=== PATIENT | female | born 1945 | race Caucasian/White ===

== ENCOUNTER → 2016-12-23 | Outpatient (CLI) | payer MEDICARE, OTHER | LOC: MW.CHORTHO 08:00 | CPT/HCPCS: 20610-50; 99203; J1040 ==

== ENCOUNTER 2018-11-30 11:17 | Emergency (ER) | payer MEDICARE, OTHER ==
--- NOTE | 2018-11-30 13:01 | EDM.PDOC ---
ED HPI GENERAL MEDICAL PROBLEM - General Chief Complaint: Headache Stated Complaint: HEADACHE Time Seen by Provider: 11/30/18 11:52 Source of Information: Reports: Patient History Limitations: Reports: No Limitations - History of Present Illness INITIAL COMMENTS - FREE TEXT/NARRATIVE: Presents reporting she hit her head on the edge of a door on Thursday night. She continues to have a little headache so her primary told her to come to the ER. She had a nosebleed on the left side yesterday had some sinus pressure. That resolved on its own. She states that she was sitting on the toilet. She got up from the toilet and did not realize that the door had swung open and she bashed her face and left for head into the door. She did not lose consciousness. She denies visual symptoms, nausea, vomiting. HEad Pain Score (Numeric/FACES): 7 - Related Data Allergies Allergy/AdvReac Type Severity Reaction Status Date / Time No Known Allergies Allergy Verified 11/30/18 11:57 Home Meds: Home Meds Albuterol [IJD: Ventolin HFA] 2 inh IH QID PRN 08/05/16 [History] Aspirin 81 mg PO DAILY 08/05/16 [History] Fluconazole [Diflucan] 150 mg PO Q3D PRN 08/05/16 [History] Fluticasone Propionate [Flonase] 1 spray USMAN DAILY 08/05/16 [History] Fluticasone Propionate [Flovent HFA 44 MCG] 2 inh IH BID 08/05/16 [History] Furosemide 40 mg PO Q2D 08/05/16 [History] Levothyroxine Sodium [Levoxyl] 175 mcg PO ACBREAKFAST 08/05/16 [History] Loperamide [Imodium] 2 mg PO QID PRN 08/05/16 [History] Losartan [Cozaar] 25 mg PO DAILY 08/05/16 [History] Methylcellulose (with Sugar) [Citrucel] 1 scoop PO ASDIRECTED PRN 08/05/16 [ History] Nitroglycerin [Nitrostat] 0.4 mg SL ASDIRECTED PRN 08/05/16 [History] Sertraline [Zoloft] 150 mg PO DAILY 08/05/16 [History] metFORMIN [Glucophage] 1,000 mg PO BIDMEALS 08/05/16 [History] rOPINIRole HCl [Ropinirole HCl] 4 mg PO BID@0800,1200 08/05/16 [History] rOPINIRole [Requip] 8 mg PO BEDTIME 08/05/16 [History] Past Medical History Cardiovascular History: Reports: Heart Murmur, High Cholesterol, Hypertension, [place] Respiratory History: Reports: Asthma Gastrointestinal History: Reports: Diverticulosis Genitourinary History: Reports: None 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: Musculoskeletal History: Reports: Arthritis, Other (See Below) Other Musculoskeletal History: Bursitis-L hip Neurological History: Reports: Vertigo Psychiatric History: Reports: Anxiety, Depression Endocrine/Metabolic History: Reports: Diabetes, Type II, Hypothyroidism Hematologic History: Reports: None Immunologic History: Reports: None Oncologic (Cancer) History: Reports: None Dermatologic History: Reports: None - Infectious Disease History Infectious Disease History: Reports: Chicken Pox, Shingles - Past Surgical History Head Surgeries/Procedures: Reports: None HEENT Surgical History: Reports: Tonsillectomy GI Surgical History: Reports: Appendectomy, Cholecystectomy, Hernia Repair/Other , Other (See Below) Female Surgical History: Reports: Hysterectomy Neurological Surgical History: Reports: Lumbar Spine Social & Family History - Family History Family Medical History: Noncontributory - Tobacco Use Smoking Status *Q: Never Smoker - Caffeine Use Caffeine Use: Reports: Soda - Recreational Drug Use Recreational Drug Use: No ED ROS GENERAL - Review of Systems Review Of Systems: ROS reveals no pertinent complaints other than HPI. ED EXAM, HEAD INJURY - Physical Exam Exam: See Below Exam Limited By: No Limitations General Appearance: Alert, No Apparent Distress Head: Scalp Ecchymosis (Left for head), Scalp Hematoma (Mild left upper forehead ), Facial Ecchymosis (Mild left for head) Ears: Normal External Exam, Normal TMs Nose: Normal Inspection Throat/Mouth: Normal Inspection, Normal Oropharynx Neck: Non-Tender, Full Range of Motion Respiratory: No Respiratory Distress, Lungs Clear, Normal Breath Sounds Cardiovascular: Normal Peripheral Pulses, Systolic Murmur (Long-standing) GI/Abdominal Exam: Soft Back Exam: Normal Inspection, Full Range of Motion Extremities: Normal 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 As Tested, No Motor/Sensory Deficits, Alert, Normal Mood/Affect, Oriented x 3 Skin: Normal Color, Warm/Dry - [place] Coma Score Best Eye Response (Kristine): (4) Open Spontaneously Best Verbal Response (Kristine): (5) Oriented Best Motor Response ([place]): (6) Obeys Commands Course - Vital Signs Last Recorded V/S: Last Vital Signs Temp 36.0 C 11/30/18 11:58 Pulse 72 11/30/18 11:58 Resp 15 11/30/18 11:58 BP 125/53 L 11/30/18 11:58 Pulse Ox 96 11/30/18 11:58 - Orders/Labs/Meds Orders: Active Orders 24 hr Category Date Time Status Head wo Cont [CT] Stat Exams 11/30/18 12:06 Ordered Departure - Departure Time of Disposition: 14:01 Disposition: Home, Self-Care 01 Condition: Good Clinical Impression: Head injury - Discharge Information Referrals: PCP,Unknown [Primary Care Provider] - Additional Instructions: 1. Return promptly for vomiting, visual symptoms, worsening headache or somnolence - My Orders Last 24 Hours: My Active Orders 11/30/18 12:06 Head wo Cont [CT] Stat - Assessment/Plan Last 24 Hours: My Active Orders 11/30/18 12:06 Head wo Cont [CT] Stat
--- NOTE | 2018-11-30 13:36 | CT ---
EXAMINATION: Non contrast CT head. Coronal and sagittal reformats. HISTORY: Pain FINDINGS: No evidence of intra or extra axial hemorrhage, mass, midline shift, hydrocephalus or edema. Mild symmetric prominence of the lateral ventricles. Mild subcortical white matter hypodensities noted most prominent within the left frontal region. No hypoattenuation changes in the major vascular territories to suggest acute infarct. No abnormal intracranial calcifications are detected. No evidence of substantial vascular calcifications. Paranasal sinuses and mastoid air cells are well aerated without substantial findings. Pituitary fossa appears unremarkable. Calvarium is intact. No evidence of skull fracture. IMPRESSION: 1. Likely mild small vessel ischemic changes. 2. Mild symmetric ventricular prominence, within normal limits, however can be collections representative of normal pressure hydrocephalus.
[2018-11-30 14:18] VITALS: BP 122/41
== END 2018-11-30 14:15 | disposition home or self-care (01) ==
LOC: MW.ED 11:17
DX: S09.90XA Unspecified injury of head, initial encounter (principal); S00.03XA Contusion of scalp, initial encounter; S00.83XA Contusion of other part of head, initial encounter; I10 Essential (primary) hypertension; E11.9 Type 2 diabetes mellitus without complications; E03.9 Hypothyroidism, unspecified; I25.2 Old myocardial infarction; Z79.84 Long term (current) use of oral hypoglycemic drugs; Z79.899 Other long term (current) drug therapy; Z79.82 Long term (current) use of aspirin; W22.8XXA Striking against or struck by other objects, initial encounter
CPT/HCPCS: 70450; 70450-26; 99284-25

== ENCOUNTER 2020-07-23 17:34 | Emergency (ER) | payer MEDICARE, OTHER ==
--- NOTE | 2020-07-23 18:30 | EDM.PDOC ---
ED HPI GENERAL MEDICAL PROBLEM - General Chief Complaint: Respiratory Problem Stated Complaint: COVID, POSSIBLE PNUEMONIA Time Seen by Provider: 07/23/20 17:43 Source of Information: Reports: Patient History Limitations: Reports: No Limitations - History of Present Illness INITIAL COMMENTS - FREE TEXT/NARRATIVE: HISTORY AND PHYSICAL: History of present illness: Patient is a 71-year-old female who presents the ED today with concern of possible bacterial pneumonia as she was diagnosed with COVID-19 on July 16, 1 week ago. Patient states that she went through a drive-through screening at the [facility] and was told that she had COVID-19 1 week ago. Patient states since then she has had generalized body aches, cough, fatigue, and fevers. Patient states that she has a history of prior bacterial pneumonia so was concerned that the COVID-19 infection would lead to a bacterial pneumonia but states that her symptoms have not worsened and have remained constant since she was diagnosed. Denies any other symptoms or concerns. Patient denies chest pain, shortness of breath. Denies headache, neck stiff ness, change in vision, syncope, or near syncope. Denies nausea, vomiting, abdominal pain, diarrhea, constipation, or dysuria. Has not noted any blood in urine or stool. Patient has been eating and drinking appropriately. Review of systems: As per history of present illness and below otherwise all systems reviewed and negative. Past medical history: As per history of present illness and as reviewed below otherwise noncontributory. Surgical history: As per history of present illness and as reviewed below otherwise noncontributory. Social history: See social history for further information Family history: As per history of present illness and as reviewed below otherwise noncontributory. Physical exam: General: Patient is alert, oriented, and in no acute distress. Patient sitting comfortably on exam table. HEENT: Atraumatic, normocephalic, pupils equal and reactive bilaterally, negative for conjunctival pallor or scleral icterus, mucous membranes moist, TMs normal bilaterally, throat clear, neck supple, nontender, trachea midline. No drooling or trismus noted. No meningeal signs. No hot potato voice noted. Lungs: Patient speaking clearly without breathlessness, no wheezing or stridor, no accessory muscle use or respiratory distress. Auscultation deferred due to current COV-ID 19 outbreak. Heart: Auscultation deferred due to current COV-ID 19 outbreak. Abdomen: Soft, nondistended Pelvis: Stable nontender. Genitourinary: Deferred. Rectal: Deferred. Skin: Intact, warm, dry. No lesions or rashes noted. Extremities: Atraumatic, negative for cords or calf pain. Neurovascular unremarkable. Neuro: Awake, alert, oriented. Cranial nerves II through XII unremarkable. Cerebellum unremarkable. Motor and sensory unremarkable throughout. Exam nonfocal. Notes: O2 on RA 94% and patient is speaking clearly without breathlessness, no wheezing or stridor, breathing comfortably without any accessory muscle use or signs of respiratory distress. Discussed with patient monitoring oxygen at home with a pulse oximeter. Thorough signs and symptoms reviewed with patient that would prompt return to the ED were thoroughly discussed. Discussed importance for follow-up with primary care provider. Voices understanding and is agreeable to plan of care. Denies any further questions or concerns at this time. Diagnostics: CXR (patient declines all other labwork or diagnostics today) Therapeutics: None Prescription: None Impression: COVID-19 infection Plan: 1. Your vital signs and oxygen saturation are well enough that you are able to monitor your symptoms at home. Continue to monitor for trouble breathing, new confusion or inability to arouse, bluish lips or face or any of the other symptoms we discussed -if this occurs please return to the emergency room as we discussed. 2. Please self quarantine as discussed. You may alternate Tylenol and ibuprofen as needed for pain and fever management. 3. Follow up with your primary care provider for re-evaluation and re-testing after the 2 week quarantine and discuss when you should be seen. Definitive disposition and diagnosis as appropriate pending reevaluation and review of above. head Pain Score (Numeric/FACES): 8 - Related Data Allergies Allergy/AdvReac Type Severity Reaction Status Date / Time No Known Allergies Allergy Verified 07/23/20 17:49 Home Meds: Home Meds Albuterol [IJD: Ventolin HFA] 2 inh IH QID PRN 08/05/16 [History] Aspirin 81 mg PO DAILY PRN 08/05/16 [History] Fluticasone Propionate [Flonase] 1 spray USMAN DAILY 08/05/16 [History] Fluticasone Propionate [Flovent HFA 44 MCG] 2 inh IH BID PRN 08/05/16 [History] Furosemide 40 mg PO DAILY 08/05/16 [History] Levothyroxine Sodium [Levoxyl] 175 mcg PO ACBREAKFAST 08/05/16 [History] Loperamide [Imodium] 2 mg PO QID PRN 08/05/16 [History] Losartan [Cozaar] 25 mg PO DAILY 08/05/16 [History] Methylcellulose (with Sugar) [Citrucel] 1 scoop PO ASDIRECTED PRN 08/05/16 [History] Nitroglycerin [Nitrostat] 0.4 mg SL ASDIRECTED PRN 08/05/16 [History] Sertraline [Zoloft] 150 mg PO DAILY 08/05/16 [History] metFORMIN [Glucophage] 1,000 mg PO BIDMEALS 08/05/16 [History] rOPINIRole HCl [Ropinirole HCl] 4 mg PO BID@0800,1200 PRN 08/05/16 [History] rOPINIRole [Requip] 8 mg PO BEDTIME PRN 08/05/16 [History] Past Medical History Cardiovascular History: Reports: Heart Murmur, High Cholesterol, Hypertension, [place] Respiratory History: Reports: Asthma Gastrointestinal History: Reports: Diverticulosis Genitourinary History: Reports: None 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: Musculoskeletal History: Reports: Arthritis, Other (See Below) Other Musculoskeletal History: Bursitis-L hip Neurological History: Reports: Vertigo Psychiatric History: Reports: Anxiety, Depression Endocrine/Metabolic History: Reports: Diabetes, Type II, Hypothyroidism Hematologic History: Reports: None Immunologic History: Reports: None Oncologic (Cancer) History: Reports: None Dermatologic History: Reports: None - Infectious Disease History Infectious Disease History: Reports: Chicken Pox, Shingles - Past Surgical History Head Surgeries/Procedures: Reports: None HEENT Surgical History: Reports: Tonsillectomy GI Surgical History: Reports: Appendectomy, Cholecystectomy, Hernia Repair/Other, Other (See Below) Female Surgical History: Reports: Hysterectomy Neurological Surgical History: Reports: Lumbar Spine Social & Family History - Family History Family Medical History: Noncontributory - Tobacco Use Smoking Status *Q: Never Smoker - Caffeine Use Caffeine Use: Reports: Soda - Recreational Drug Use Recreational Drug Use: No ED ROS GENERAL - Review of Systems Review Of Systems: Comprehensive ROS is negative, except as noted in HPI. 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 This information is to outline your options for follow-up care. We provide all patients seen in our emergency department with a follow-up referral. The need for follow-up, as well as the timing and circumstances, are variable depending upon the specifics of your emergency department visit. If you don't have a primary care physician on staff, we will provide you with a referral. We always advise you to contact your personal physician following an emergency department visit to inform them of the circumstance of the visit and for follow-up with them and/or the need for any referrals to a consulting specialist. The emergency department will also refer you to a specialist when appropriate. This referral assures that you have the opportunity for follow-up care with a specialist. All of these measure are taken in an effort to provide you with optimal care, which includes your follow-up. Under all circumstances we always encourage you to contact your private physician who remains a resource for coordinating your care. When calling for follow-up care, please make the office aware that this follow-up is from your recent emergency room visit. If for any reason you are refused follow-up, please contact the [facility] at and asked to speak to the emergency department charge nurse. [facility] [address] [place] [address] [id number] [address] [id number] 1. Your vital signs and oxygen saturation are well enough that you are able to monitor your symptoms at home. Continue to monitor for trouble breathing, new confusion or inability to arouse, bluish lips or face or any of the other symptoms we discussed -if this occurs please return to the emergency room as we discussed. 2. Please self quarantine as discussed. You may alternate Tylenol and ibuprofen as needed for pain and fever management. 3. Follow up with your primary care provider for re-evaluation and re-testing after the 2 week quarantine and discuss when you should be seen. Sepsis Event Note (ED) - Evaluation Sepsis Screening Result: Possible Sepsis Risk - Focused Exam Vital Signs: Vital Signs Temp Pulse Resp BP Pulse Ox 07/23/20 18:17 77 24 H 119/45 L 93 L 07/23/20 17:45 98.3 F 87 24 H 125/48 L 92 L
--- NOTE | 2020-07-23 18:58 | CR ---
INDICATION: Pain. Shortness of breath. COMPARISON: None. FINDINGS/IMPRESSION: Upright portable AP chest radiograph. Suggestion of subtle patchy bilateral mid and lower lung infiltrates, age indeterminate. An infectious or inflammatory etiology is possible. No pleural effusions. Upper normal heart size. Spinal and shoulder degenerative changes. No acute osseous findings. Dictated by Hari Ramires MD @ 07/23/2020 6:57:10 PM Dictated by: Hari Ramires MD @ 07/23/2020 18:57:28 (Electronically Signed)
[2020-07-24 02:26] VITALS: BP 131/77; PULSE 83
== END 2020-07-23 19:16 | disposition home or self-care (01) ==
LOC: MW.ED 17:34
DX: U07.1 COVID-19 (principal); I10 Essential (primary) hypertension; I25.2 Old myocardial infarction; J45.909 Unspecified asthma, uncomplicated; M19.90 Unspecified osteoarthritis, unspecified site; F41.9 Anxiety disorder, unspecified; F32.9 Major depressive disorder, single episode, unspecified; E11.9 Type 2 diabetes mellitus without complications; E03.9 Hypothyroidism, unspecified; Z79.82 Long term (current) use of aspirin; Z79.899 Other long term (current) drug therapy; Z79.84 Long term (current) use of oral hypoglycemic drugs
CPT/HCPCS: 71045; 71045-26; 99282; 99283-25

== ENCOUNTER 2020-07-30 01:55 | Emergency (ER) | payer MEDICARE, OTHER ==
[2020-07-30] MEDS ORDERED: Ondansetron 4 MG/2 ML SDV IVPUSH ONE (02:15)
[2020-07-30] MEDS ORDERED: Sodium Chloride 0.9% 2.5 ML Syringe FLUSH PRN (02:15)
[2020-07-30] MEDS ORDERED: Sodium Chloride 0.9% 1,000 ML IV ONE (02:15)
[2020-07-30] MEDS ORDERED: Sodium Chloride 0.9% 10 ML Syringe FLUSH PRN (02:15)
[2020-07-30 03:11] LABS: BLOOD UREA NITROGEN,BUN 17 mg/dL (7.0-18.0); CARBON DIOXIDE,CO2 25.6 mmol/L (21.0-32.0); CHLORIDE,CL 98 mmol/L (98-107); GLUCOSE RANDOM 139 mg/dL (74-106); POTASSIUM,K 3.4 mmol/L (3.5-5.1); SODIUM,NA 130 mmol/L (136-145)
[2020-07-30] MEDS ORDERED: Iopamidol 755 Mg/ML 100 ML Bottle IVPUSH STA (03:59)
--- NOTE | 2020-07-30 04:15 | CT ---
INDICATION: Shortness of breath TECHNIQUE: Contrast enhanced axial CT imaging through the chest, optimized for assessment of the pulmonary arterial tree. 75 mL Isovue 370 contrast agent was administered intravenously. Sagittal and coronal reconstructions are provided. COMPARISON: None FINDINGS: There is adequate opacification of the pulmonary arterial tree without evidence of thromboembolism. The main pulmonary artery is nondilated. The heart is mildly enlarged. There is mild coronary artery calcification. There is no pericardial effusion. There is normal caliber of the thoracic aorta. Mildly enlarged lymph nodes are seen scattered throughout the mediastinum and pulmonary riky. There are patchy ground-glass infiltrates throughout both lungs. There is no pleural effusion or pneumothorax. The thoracic osseous structures are unremarkable. No significant abnormality is demonstrated in the visualized upper abdomen. IMPRESSION: 1. Patchy ground-glass infiltrates throughout both lungs, concerning for COVID-19 pneumonia. Correlate clinically. 2. Mild mediastinal lymphadenopathy, presumably reactive. 3. No evidence of pulmonary thromboembolism. 4. Mild cardiomegaly. Coronary artery disease. Please note that all CT scans at this facility use dose modulation, iterative reconstruction, and/or weight-based dosing when appropriate to reduce radiation dose to as low as reasonably achievable. Dictated by Darren Rizo MD @ Jul 30 2020 4:14AM Signed by Dr. Darren Rizo @ Jul 30 2020 4:14AM
--- NOTE | 2020-07-30 04:33 | EDM.PDOC ---
ED HPI GENERAL MEDICAL PROBLEM - General Chief Complaint: Respiratory Problem Stated Complaint: SOB Time Seen by Provider: 07/30/20 02:17 - History of Present Illness INITIAL COMMENTS - FREE TEXT/NARRATIVE: HISTORY AND PHYSICAL: History of present illness: This is a 75-year-old female with a history significant hypertension and type 2 diabetes who was recently diagnosed on July 16 with coronavirus who presents ER today secondary to increased shortness of breath this evening. Patient reports that she was released today from quarantine since has been 2 weeks. Patient denies any recent fevers for approximately 2 days but reports of having fevers prior to that. Patient denies any nausea or vomiting but has had 1-2 loose bowel movements today. Patient has any dysuria frequency urgency. Patient has an abdominal pain. Patient denies any lower extremity edema. Patient denies any hemoptysis. Patient reports occasional nonproductive cough. Patient denies any chest pain. Patient denies any history of PE or DVT in the past. Patient denies any history of liver, lung, kidney problems. Patient reports that she has had coronary disease and October 2011 requiring a stent. Patient reports that she has a history of diverticulitis and has had surgery for diverticulitis in the past. Patient has no known drug allergies. Patient denies any tobacco alcohol or drugs. Review of systems: As per history of present illness and below otherwise all systems reviewed and negative. Past medical history: As per history of present illness and as reviewed below otherwise noncontributory. Surgical history: As per history of present illness and as reviewed below otherwise noncontributory. Social history: No reported history of drug or alcohol abuse. Family history: As per history of present illness and as reviewed below otherwise noncontributory. Physical exam: Constitutional: Patient is oriented to person, place, and time. Appears well- developed and well-nourished. No distress. HEENT: Moist mucous membranes Head: Normocephalic and atraumatic Eyes: Right eye exhibits no discharge. Left eye exhibits no discharge. No scleral icterus Neck: Normal range of motion. No tracheal deviation present. Cardiovascular: Normal rate and regular rhythm. Pulmonary: Effort normal, no respiratory distress. No wheezing rales or rhonchi Abdominal: No distention Musculoskeletal: Normal range of motion Neurologic: Alert and oriented to person, place and time. Skin: [place], warm and dry. Psychiatric: Normal mood and affect. Behavior is normal. Judgment and thought content normal. Nursing note and vital signs have been reviewed Diagnostics: CTA of thorax reveals no evidence of PE. Patient does have groundglass appearance to her lungs consistent with likely coronavirus infection. Assessment and plan: This is a 75-year-old female with a recent diagnosis of coronavirus who presents the ER today secondary to increased shortness of breath. Patient pulse ox on room air is 93 to 95%. Patient CT scan is consistent with likely changes from coronavirus. Patient's labs are all within normal limits. Patient does have a slightly elevated BNP. Patient is been resting comfortably in the ER and sleeping without any apparent dyspnea or shortness of breath. Patient has not been coughing in the ED. At this time the patient does not meet inpatient level of care for admission for coronavirus. Patient will be discharged home with instructions to follow-up with her primary care physician for reevaluation within the next 2 to 3 days. Patient will be instructed to return to the ER if she has any increased or worsening shortness of breath. Reassessment at the time of disposition demonstrates that the patient is in no acute distress. The patient has remained stable throughout the entire ED visit and is without objective evidence for acute process requiring urgent intervention or hospitalization. The patient is stable for discharge, counseling is provided as documented above, discussed symptomatic treatment and specific conditions for return. I have spoken with the patient/caregiver and discussed todays findings, in addition to providing specific details for the plan of care. Questions are answered and there is agreement with the plan. Definitive disposition and diagnosis as appropriate pending reevaluation and review of above. - Related Data Allergies Allergy/AdvReac Type Severity Reaction Status Date / Time No Known Allergies Allergy Verified 07/30/20 02:17 Home Meds: Home Meds Albuterol [IJD: Ventolin HFA] 2 inh IH QID PRN 08/05/16 [History] Aspirin 81 mg PO DAILY PRN 08/05/16 [History] Fluticasone Propionate [Flonase] 1 spray USMAN DAILY 08/05/16 [History] Fluticasone Propionate [Flovent HFA 44 MCG] 2 inh IH BID PRN 08/05/16 [History] Furosemide 40 mg PO DAILY 08/05/16 [History] Levothyroxine Sodium [Levoxyl] 175 mcg PO ACBREAKFAST 08/05/16 [History] Loperamide [Imodium] 2 mg PO QID PRN 08/05/16 [History] Losartan [Cozaar] 25 mg PO DAILY 08/05/16 [History] Methylcellulose (with Sugar) [Citrucel] 1 scoop PO ASDIRECTED PRN 08/05/16 [History] Nitroglycerin [Nitrostat] 0.4 mg SL ASDIRECTED PRN 08/05/16 [History] Sertraline [Zoloft] 150 mg PO DAILY 08/05/16 [History] metFORMIN [Glucophage] 1,000 mg PO BIDMEALS 08/05/16 [History] rOPINIRole HCl [Ropinirole HCl] 4 mg PO BID@0800,1200 PRN 08/05/16 [History] rOPINIRole [Requip] 8 mg PO BEDTIME PRN 08/05/16 [History] Past Medical History Cardiovascular History: Reports: Heart Murmur, High Cholesterol, Hypertension, [place] Respiratory History: Reports: Asthma Gastrointestinal History: Reports: Diverticulosis Genitourinary History: Reports: None 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: Musculoskeletal History: Reports: Arthritis, Other (See Below) Other Musculoskeletal History: Bursitis-L hip Neurological History: Reports: Vertigo Psychiatric History: Reports: Anxiety, Depression Endocrine/Metabolic History: Reports: Diabetes, Type II, Hypothyroidism Hematologic History: Reports: None Immunologic History: Reports: None Oncologic (Cancer) History: Reports: None Dermatologic History: Reports: None - Infectious Disease History Infectious Disease History: Reports: Chicken Pox - Past Surgical History Head Surgeries/Procedures: Reports: None HEENT Surgical History: Reports: Tonsillectomy GI Surgical History: Reports: Appendectomy, Cholecystectomy, Hernia Repair/Other, Other (See Below) Female Surgical History: Reports: Hysterectomy Neurological Surgical History: Reports: Lumbar Spine Social & Family History - Family History Family Medical History: Noncontributory - Tobacco Use Smoking Status *Q: Never Smoker Second Hand Smoke Exposure: No - Caffeine Use Caffeine Use: Reports: Coffee - Recreational Drug Use Recreational Drug Use: No ED ROS GENERAL - Review of Systems Review Of Systems: See Below ED EXAM, GENERAL - Physical Exam Exam: See Below EKG INTERPRETATION EKG Interpretation Comments: EKG: Normal sinus rhythm heart rate of [address]-T wave abnormalities Normal axis No evidence of ST elevation HI As interpreted by ER physician: [place] Course - Vital Signs Last Recorded V/S: Last Vital Signs Temp 96.9 F 07/30/20 01:59 Pulse 71 07/30/20 04:15 Resp 16 07/30/20 04:15 BP 127/55 L 07/30/20 04:15 Pulse Ox 94 L 07/30/20 04:15 - Orders/Labs/Meds Orders: Active Orders 24 hr Category Date Time Status EKG Documentation Completion [RC] AM Care 07/30/20 02:15 Active Sodium Chloride 0.9% [Saline Flush] Med 07/30/20 02:15 Active 10 ml FLUSH ASDIRECTED PRN Sodium Chloride 0.9% [Saline Flush] Med 07/30/20 02:15 Active 2.5 ml FLUSH ASDIRECTED PRN Saline Lock Insert [OM.PC] Stat Oth 07/30/20 02:15 Ordered Medication Orders Sodium Chloride (Saline Flush) 10 ml FLUSH ASDIRECTED PRN PRN Reason: Keep Vein Open Last Admin: 07/30/20 02:42 Dose: 10 ml Documented by: KELTON Sodium Chloride (Saline Flush) 2.5 ml FLUSH ASDIRECTED PRN PRN Reason: Keep Vein Open Last Admin: 07/30/20 02:42 Dose: 2.5 ml Documented by: KELTON Labs: Laboratory Tests 07/30/20 07/30/20 07/30/20 Range/Units 02:40 02:40 02:40 WBC 9.49 (4.0-11.0) K/uL RBC 3.36 L (4.30-5.90) M/uL Hgb 9.9 L (12.0-16.0) g/dL Hct 28.8 L (36.0-46.0) % MCV 85.7 (80.0-98.0) fL MCH 29.5 (27.0-32.0) pg MCHC 34.4 (31.0-37.0) g/dL RDW Std Deviation 42.3 (28.0-62.0) fl RDW Coeff of Petar 14 (11.0-15.0) % Plt Count 264 (150-400) K/uL MPV 8.60 (7.40-12.00) fL Neut % (Auto) 76.3 (48.0-80.0) % Lymph % (Auto) 11.0 L (16.0-40.0) % Coke % (Auto) 9.7 (0.0-15.0) % Eos % (Auto) 2.7 (0.0-7.0) % Baso % (Auto) 0.3 (0.0-1.5) % Neut # (Auto) 7.2 H (1.4-5.7) K/uL Lymph # (Auto) 1.0 (0.6-2.4) K/uL Coke # (Auto) 0.9 H (0.0-0.8) K/uL Eos # (Auto) 0.3 (0.0-0.7) K/uL Baso # (Auto) 0.0 (0.0-0.1) K/uL Nucleated RBC % 0.0 /100WBC Nucleated RBCs # 0 K/uL Sodium 130 L (136-145) mmol/L Potassium 3.4 L (3.5-5.1) mmol/L Chloride 98 (98-107) mmol/L Carbon Dioxide 25.6 (21.0-32.0) mmol/L BUN 17 (7.0-18.0) mg/dL Creatinine 0.9 (0.6-1.0) mg/dL Est Cr Clr Drug Dosing 49.35 mL/min Estimated GFR (MDRD) > 60.0 ml/min Glucose 139 H (74-106) mg/dL Calcium 9.1 (8.5-10.1) mg/dL Total Bilirubin 0.8 (0.2-1.0) mg/dL AST 60 H (15-37) IU/L ALT 47 (14-63) IU/L Alkaline Phosphatase 69 (46-116) U/L Troponin I < 0.050 (0.000-0.056) ng/mL B-Natriuretic Peptide 197 H (<100) PG/ML Total Protein 7.2 (6.4-8.2) g/dL Albumin 2.6 L (3.4-5.0) g/dL Globulin 4.6 H (2.6-4.0) g/dL Albumin/Globulin Ratio 0.6 L (0.9-1.6) Meds: Medications Generic Name Dose Route Start Last Admin Trade Name Freq PRN Reason Stop Dose Admin Sodium Chloride 10 ml 07/30/20 02:15 07/30/20 02:42 Saline Flush FLUSH 10 ml ASDIRECTED PRN Administration Keep Vein Open Sodium Chloride 2.5 ml 07/30/20 02:15 07/30/20 02:42 Saline Flush FLUSH 2.5 ml ASDIRECTED PRN Administration Keep Vein Open Discontinued Medications Generic Name Dose Route Start Last Admin Trade Name Mandy PRN Reason Stop Dose Admin Sodium Chloride 1,000 mls @ 999 mls/hr 07/30/20 02:15 07/30/20 02:42 Normal Saline IV 07/30/20 03:15 999 mls/hr .Bolus ONE Administration Iopamidol 75 ml 07/30/20 03:59 07/30/20 04:00 Isovue-370 (76%) IVPUSH 07/30/20 04:00 75 ml ONETIME STA Administration Ondansetron HCl 4 mg 07/30/20 02:15 07/30/20 02:42 Zofran IVPUSH 07/30/20 02:16 4 mg ONETIME ONE Administration Departure - Departure Time of Disposition: 04:33 Disposition: Home, Self-Care 01 Condition: Good Clinical Impression: COVID-19, Dyspnea - Discharge Information Instructions: Prevent the Spread of COVID-19 if You Are Sick - CDC, COVID-19, COVID-19 Frequently Asked Questions Referrals: PCP,None [Primary Care Provider] - Additional Instructions: You were seen and evaluated in the ER today secondary to shortness of breath. The CT scan of your chest shows changes consistent with inflammation from coronavirus. There is no evidence of blood clots in your lungs or evidence of bacterial pneumonia. Please make an appointment to see your doctor within the next 2 to 3 days. Please return to the ER if you experience worsening shortness of breath any new or concerning symptoms. The following information is given to patients seen in the emergency department who are being discharged to home. This information is to outline your options for follow-up care. We provide all patients seen in our emergency department with a follow-up referral. The need for follow-up, as well as the timing and circumstances, are variable depending upon the specifics of your emergency department visit. If you don't have a primary care physician on staff, we will provide you with a referral. We always advise you to contact your personal physician following an emergency department visit to inform them of the circumstance of the visit and for follow-up with them and/or the need for any referrals to a consulting specialist. The emergency department will also refer you to a specialist when appropriate. This referral assures that you have the opportunity for follow-up care with a specialist. All of these measure are taken in an effort to provide you with optimal care, which includes your follow-up. Under all circumstances we always encourage you to contact your private physician who remains a resource for coordinating your care. When calling for follow-up care, please make the office aware that this follow-up is from your recent emergency room visit. If for any reason you are refused follow-up, please contact the [facility] Emergency Department at and asked to speak to the emergency department charge nurse. Sepsis Event Note (ED) - Evaluation Sepsis Screening Result: No Definite Risk - Focused Exam Vital Signs: Vital Signs Temp Pulse Resp BP Pulse Ox 07/30/20 04:15 71 16 127/55 L 94 L 07/30/20 03:18 67 16 127/60 95 07/30/20 01:59 96.9 F 63 19 127/50 L 95 - My Orders Last 24 Hours: My Active Orders 07/30/20 02:15 EKG Documentation Completion [RC] AM Sodium Chloride 0.9% [Saline Flush] 10 ml FLUSH ASDIRECTED PRN Sodium Chloride 0.9% [Saline Flush] 2.5 ml FLUSH ASDIRECTED PRN Saline Lock Insert [OM.PC] Stat - Assessment/Plan Last 24 Hours: My Active Orders 07/30/20 02:15 EKG Documentation Completion [RC] AM Sodium Chloride 0.9% [Saline Flush] 10 ml FLUSH ASDIRECTED PRN Sodium Chloride 0.9% [Saline Flush] 2.5 ml FLUSH ASDIRECTED PRN Saline Lock Insert [OM.PC] Stat
[2020-07-30 04:37] VITALS: BP 116/67; PULSE 76
== END 2020-07-30 04:44 | disposition home or self-care (01) ==
LOC: MW.ED 01:55
DX: U07.1 COVID-19 (principal); I10 Essential (primary) hypertension; J45.909 Unspecified asthma, uncomplicated; M19.90 Unspecified osteoarthritis, unspecified site; F41.9 Anxiety disorder, unspecified; F32.9 Major depressive disorder, single episode, unspecified; E11.9 Type 2 diabetes mellitus without complications; E03.9 Hypothyroidism, unspecified; Z79.82 Long term (current) use of aspirin; Z79.899 Other long term (current) drug therapy; Z79.84 Long term (current) use of oral hypoglycemic drugs
CPT/HCPCS: 36415; 71275; 80053; 83880; 84484; 85025; 96361; 96374; 99285; J2405; J7030; Q9967; 99284

== ENCOUNTER 2020-12-20 06:58 | Emergency (ER) | payer MEDICARE, OTHER ==
--- NOTE | 2020-12-20 07:30 | EDM.PDOC ---
ED HPI GENERAL MEDICAL PROBLEM - General Chief Complaint: General Stated Complaint: SHAKING AFTER 2ND COVID SHOT Time Seen by Provider: 12/20/20 07:28 Source of Information: Reports: Patient History Limitations: Reports: No Limitations - History of Present Illness INITIAL COMMENTS - FREE TEXT/NARRATIVE: 75-year-old female presents feeling shaky and chills. She received her second Covid vaccine yesterday and started feeling shaky and chills. Patient denies fevers, headache, chest pain, shortness of breath, cough, N/V/D, dysuria, abdominal pain, focal numbness or weakness. She has a follow-up MRI for her right foot stress fracture. ROS: A 10-point review of systems, other than pertinent positives and negatives as stated per HPI, is otherwise negative Past medical history: No additional pertinent history Past Surgical history: No additional pertinent history Social history: No additional pertinent history Family history: No additional pertinent history PHYSICAL EXAM General: AOx4, GCS = 15, No distress HEENT: dry mucous membrane Neck: supple, no meningismus, no Kernig or Brudzinski Cardiac: S1S2 RRR, holosystolic murmur Respiratory: CTAB, no crackles or rales, no wheezing Abdomen: Soft, nontender, no rebound or guarding, nondistended, no pulsatile mass. Back: nontender Musculoskeletal: NVI distally, right leg in a boot Neuro: No focal deficits, CN 2 - 12 WNL. - Related Data Allergies Allergy/AdvReac Type Severity Reaction Status Date / Time No Known Allergies Allergy Verified 12/20/20 07:12 Home Meds: Home Meds Albuterol [IJD: Ventolin HFA] 2 inh IH QID PRN 08/05/16 [History] Aspirin 81 mg PO DAILY PRN 08/05/16 [History] Fluticasone Propionate [Flonase] 1 spray USMAN DAILY 08/05/16 [History] Fluticasone Propionate [Flovent HFA 44 MCG] 2 inh IH BID PRN 08/05/16 [History] Furosemide 40 mg PO DAILY 08/05/16 [History] Levothyroxine Sodium [Levoxyl] 175 mcg PO ACBREAKFAST 08/05/16 [History] Loperamide [Imodium] 2 mg PO QID PRN 08/05/16 [History] Losartan [Cozaar] 25 mg PO DAILY 08/05/16 [History] Methylcellulose (with Sugar) [Citrucel] 1 scoop PO ASDIRECTED PRN 08/05/16 [History] Nitroglycerin [Nitrostat] 0.4 mg SL ASDIRECTED PRN 08/05/16 [History] Sertraline [Zoloft] 150 mg PO DAILY 08/05/16 [History] metFORMIN [Glucophage] 1,000 mg PO BIDMEALS 08/05/16 [History] rOPINIRole HCl [Ropinirole HCl] 4 mg PO BID@0800,1200 PRN 08/05/16 [History] rOPINIRole [Requip] 8 mg PO BEDTIME PRN 08/05/16 [History] Past Medical History Cardiovascular History: Reports: Heart Murmur, High Cholesterol, Hypertension, [place] Respiratory History: Reports: Asthma Gastrointestinal History: Reports: Diverticulosis Genitourinary History: Reports: None 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: Musculoskeletal History: Reports: Arthritis, Other (See Below) Other Musculoskeletal History: Bursitis-L hip Neurological History: Reports: Vertigo Psychiatric History: Reports: Anxiety, Depression Endocrine/Metabolic History: Reports: Diabetes, Type II, Hypothyroidism Hematologic History: Reports: None Immunologic History: Reports: None Oncologic (Cancer) History: Reports: None Dermatologic History: Reports: None - Infectious Disease History Infectious Disease History: Reports: Chicken Pox - Past Surgical History Head Surgeries/Procedures: Reports: None HEENT Surgical History: Reports: Tonsillectomy GI Surgical History: Reports: Appendectomy, Cholecystectomy, Hernia Repair/Other, Other (See Below) Other GI Surgeries/Procedures: Diverticuli resection Female Surgical History: Reports: Hysterectomy Neurological Surgical History: Reports: Lumbar Spine Social & Family History - Family History Family Medical History: No Pertinent Family History - Tobacco Use Tobacco Use Status *Q: Never Tobacco User Second Hand Smoke Exposure: Yes - Caffeine Use Caffeine Use: Reports: Coffee - Recreational Drug Use Recreational Drug Use: No ED ROS GENERAL - Review of Systems Review Of Systems: See Below (see dictation) ED EXAM, GENERAL - Physical Exam Exam: See Below (see dictation) Course - Vital Signs Last Recorded V/S: Last Vital Signs Temp 100.2 F 12/20/20 07:12 Pulse 97 12/20/20 07:12 Resp 17 12/20/20 07:12 BP 120/49 L 12/20/20 07:12 Pulse Ox 97 12/20/20 07:12 - Re-Assessments/Exams Free Text/Narrative Re-Assessment/Exam: 12/20/20 07:40 I performed a repeat exam and did not appreciate new abnormal findings. Patient exhibits normal vital signs and has a normal gait on road test. I advised the patient to return to the ER for reevaluation if symptoms worsened, including fever, worsening pain, or any other worrisome symptoms. I instructed the patient to follow up with their PCP within 2-3 days. MEDICAL DECISION MAKING: I reviewed the patients past medical records, lab and radiographic findings. I discussed the case with the patient. My differential diagnosis included: Post vaccination reaction. No suspicion for sepsis or infectious etiology. Patient experienced chills and feeling shaky after getting her second Covid vaccine. She had no physical complaints, no cough, no complaints of nausea, vomiting, diarrhea, abdominal pain, shortness of breath, dysuria, rash. I do not suspect sepsis. Departure - Departure Time of Disposition: 07:28 Disposition: Home, Self-Care 01 Condition: Good Clinical Impression: Vaccination complication - Discharge Information *PRESCRIPTION DRUG MONITORING PROGRAM REVIEWED*: Not Applicable *COPY OF PRESCRIPTION DRUG MONITORING REPORT IN PATIENT TIMI: Not Applicable Instructions: COVID-19 Vaccine Information Referrals: Mahi Vargas NP [Primary Care Provider] - 3 Days Forms: ED Department Discharge Additional Instructions: The need for follow-up, as well as the timing and circumstances, are variable depending upon the specifics of your emergency department visit. If you don't have a primary care physician on staff, we will provide you with a referral. We always advise you to contact your personal physician following an emergency department visit to inform them of the circumstance of the visit and for follow-up with them and/or the need for any referrals to a consulting specialist. The emergency department will also refer you to a specialist when appropriate. This referral assures that you have the opportunity for follow-up care with a specialist. All of these measure are taken in an effort to provide you with optimal care, which includes your follow-up. Under all circumstances we always encourage you to contact your private physician who remains a resource for coordinating your care. When calling for follow-up care, please make the office aware that this follow-up is from your recent emergency room visit. If for any reason you are refused follow-up, please contact the [facility] Emergency Department at and asked to speak to the emergency department charge nurse. If you do not have a primary care doctor, please follow up with the clinics below within 3-5 days. [facility] - Primary Care [address] [place] [id number] [id number] Sepsis Event Note (ED) - Evaluation Sepsis Screening Result: Possible Sepsis Risk - Focused Exam Vital Signs: Vital Signs Temp Pulse Resp BP Pulse Ox 12/20/20 07:12 100.2 F 97 17 120/49 L 97
[2020-12-20 07:38] VITALS: BP 120/61; PULSE 89
== END 2020-12-20 07:39 | disposition home or self-care (01) ==
LOC: MW.ED 06:58
DX: T88.1XXA Other complications following immunization, not elsewhere classified, initial encounter (principal); T50.B15A Adverse effect of smallpox vaccines, initial encounter; I10 Essential (primary) hypertension; I25.2 Old myocardial infarction; J45.909 Unspecified asthma, uncomplicated; M19.90 Unspecified osteoarthritis, unspecified site; E11.9 Type 2 diabetes mellitus without complications; E03.9 Hypothyroidism, unspecified; Z79.899 Other long term (current) drug therapy; Z79.82 Long term (current) use of aspirin; Z79.84 Long term (current) use of oral hypoglycemic drugs; Z77.22 Contact with and (suspected) exposure to environmental tobacco smoke (acute) (chronic)
CPT/HCPCS: 99283

== ENCOUNTER 2021-02-11 16:55 | Emergency (ER) | payer MEDICARE, OTHER ==
[2021-02-11] MEDS ORDERED: Diphtheria,Pertussis(Acell),Tetanus Vaccine 0.5 ML Syringe IM ONE (18:08)
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
[2021-02-11] MEDS ORDERED: Bacitracin Oint 1 GM U/D Packet TOP ONE (18:45)
[2021-02-11 19:07] VITALS: BP 128/80; PULSE 60
== END 2021-02-11 19:07 | disposition home or self-care (01) ==
LOC: MW.ED 16:55
DX: T24.132A Burn of first degree of left lower leg, initial encounter (principal); I10 Essential (primary) hypertension; I25.2 Old myocardial infarction; J45.909 Unspecified asthma, uncomplicated; E11.9 Type 2 diabetes mellitus without complications; E03.9 Hypothyroidism, unspecified; Z79.84 Long term (current) use of oral hypoglycemic drugs; Z79.899 Other long term (current) drug therapy; Z23 Encounter for immunization; X16.XXXA Contact with hot heating appliances, radiators and pipes, initial encounter; Y92.009 Unspecified place in unspecified non-institutional (private) residence as the place of occurrence of the external cause
CPT/HCPCS: 90471; 90715; 99282; 99283

== ENCOUNTER 2022-08-22 16:20 | Observation (INO) | payer MEDICARE, OTHER ==
[2022-08-22] MEDS ORDERED: Sodium Chloride 0.9% 10 ML Syringe FLUSH PRN (17:12)
[2022-08-22] MEDS ORDERED: Sodium Chloride 0.9% 2.5 ML Syringe FLUSH PRN (17:12)
[2022-08-22] MEDS ORDERED: Ketorolac 30 MG/ML SDV IVPUSH ONE (17:14)
[2022-08-22] MEDS ORDERED: Ondansetron 4 MG/2 ML SDV IVPUSH ONE (17:14)
[2022-08-22] MEDS ORDERED: Sodium Chloride 0.9% 500 ML IV SCH (17:15)
[2022-08-22 18:05] LABS: CARBON DIOXIDE,CO2 26.3 mmol/L (21.0-32.0)
[2022-08-22 18:16] LABS: CORONAVIRUS COVID-19 NAA NEGATIVE (NEGATIVE); INFLUENZA A NAA NEGATIVE (NEGATIVE); INFLUENZA B NAA NEGATIVE (NEGATIVE)
[2022-08-22] MEDS ORDERED: Morphine 2 MG/ML SYRINGE IVPUSH ONE (18:41)
[2022-08-22] MEDS ORDERED: Sodium Chloride 0.9% 1,000 ML IV STA (18:42)
[2022-08-22] MEDS ORDERED: Iopamidol 755 Mg/ML 100 ML Bottle IVPUSH ONE (18:44)
[2022-08-22] MEDS ORDERED: Ondansetron 4 MG/2 ML SDV IVPUSH PRN (21:57)
[2022-08-22] MEDS ORDERED: Albuterol/Ipratropium 3.0-0.5 MG/3 ML Neb Soln NEB PRN (21:57)
[2022-08-22] MEDS ORDERED: Morphine 2 MG/ML SYRINGE IVPUSH PRN (22:41)
[2022-08-22] MEDS: Lactated Ringers 1,000 ML IV SCH (22:49)
[2022-08-22] MEDS: Pantoprazole 40 MG in Sodium Chloride 0.9% 10 ML IVPUSH SCH (22:49)
[2022-08-23 07:25] LABS: CARBON DIOXIDE,CO2 26.8 mmol/L (21.0-32.0); POTASSIUM,K 4.1 mmol/L (3.5-5.1)
[2022-08-23] MEDS: Lactated Ringers 1,000 ML IV SCH ×2 (08:30→17:29)
[2022-08-23] MEDS ORDERED: rOPINIRole 1 MG Tab PO PRN (11:34)
[2022-08-23] MEDS ORDERED: Fluticasone NASAL Spray 16 GM Bottle NAS PRN (11:45)
[2022-08-23] MEDS ORDERED: 50% Dextrose in Water 50 ML Syringe IVPUSH PRN (13:06)
[2022-08-23] MEDS ORDERED: Glucagon,Human Recombinant 1 MG Vial IM PRN (13:06)
[2022-08-23] MEDS ORDERED: Acetaminophen/oxyCODONE 325-5 MG Tab PO SCH (14:00)
[2022-08-23] MEDS: Insulin Aspart 100 Units/ML 3 ML Pen SUBCUT SCH (18:22)
[2022-08-23] MEDS ORDERED: Melatonin 3 MG Tab PO PRN (20:18)
[2022-08-23] MEDS: Pantoprazole 40 MG in Sodium Chloride 0.9% 10 ML IVPUSH SCH ×2 (20:50→21:27)
[2022-08-24] MEDS: Lactated Ringers 1,000 ML IV SCH (02:06)
[2022-08-24] MEDS: Insulin Aspart 100 Units/ML 3 ML Pen SUBCUT SCH (06:42)
[2022-08-24] MEDS ORDERED: LEVOTHYROXINE SODIUM 175 MCG PO SCH (07:30)
[2022-08-24 09:02] LABS: CARBON DIOXIDE,CO2 29.6 mmol/L (21.0-32.0); POTASSIUM,K 4.5 mmol/L (3.5-5.1)
[2022-08-24 12:10] VITALS: BP 138/61; PULSE 46
== END 2022-08-24 13:20 | disposition home health service (06) ==
LOC: MW.ED 16:20 → MW.MS 19:40
PROVIDERS: ADMIT Student in an Organized Health Care Education/Training Program; ATTEND Student in an Organized Health Care Education/Training Program
DX: K85.90 Acute pancreatitis without necrosis or infection, unspecified (principal); K57.30 Diverticulosis of large intestine without perforation or abscess without bleeding; G25.81 Restless legs syndrome; E11.9 Type 2 diabetes mellitus without complications; J45.909 Unspecified asthma, uncomplicated; E78.00 Pure hypercholesterolemia, unspecified; I25.2 Old myocardial infarction; I10 Essential (primary) hypertension; M19.90 Unspecified osteoarthritis, unspecified site; E03.9 Hypothyroidism, unspecified; F32.A Depression, unspecified; F41.9 Anxiety disorder, unspecified; Z90.49 Acquired absence of other specified parts of digestive tract; Z98.890 Other specified postprocedural states; Z20.822 Contact with and (suspected) exposure to COVID-19; Z79.899 Other long term (current) drug therapy; Z79.84 Long term (current) use of oral hypoglycemic drugs
CPT/HCPCS: 0240U; 36415; 74177; 80053; 80061; 81003; 82947; 83690; 83735; 84100; 84484; 85025; 93005; A9270; C9113; J1885; J2270; J2405; J3490; J7030; J7040; J7120; Q9967

== ENCOUNTER 2023-02-09 11:54 | Emergency (ER) | payer MEDICARE, OTHER ==
[2023-02-09 12:54] LABS: CARBON DIOXIDE,CO2 22.2 mmol/L (21.0-32.0); POTASSIUM,K 4.3 mmol/L (3.5-5.1)
[2023-02-09] MEDS ORDERED: Ondansetron 4 MG/2 ML SDV IVPUSH ONE (13:07)
[2023-02-09] MEDS ORDERED: Sodium Chloride 0.9% 1,000 ML IV ONE (13:07)
[2023-02-09] MEDS ORDERED: Morphine 4 MG/ML Syringe IVPUSH ONE ×2 (13:10→16:17)
[2023-02-09] MEDS ORDERED: Sodium Chloride 0.9% 500 ML IV SCH (16:15)
[2023-02-09 18:32] VITALS: BP 102/59; PULSE 68
== END 2023-02-09 18:32 | disposition home or self-care (01) ==
LOC: MW.ED 11:54
DX: K52.9 Noninfective gastroenteritis and colitis, unspecified (principal); I25.2 Old myocardial infarction; J45.909 Unspecified asthma, uncomplicated; E11.9 Type 2 diabetes mellitus without complications; E03.9 Hypothyroidism, unspecified; Z79.84 Long term (current) use of oral hypoglycemic drugs
CPT/HCPCS: 36415; 80053; 81003; 83690; 85025; 96361; 96374; 96375; 96376; 99284; J2270; J2405; J7030

== ENCOUNTER 2024-01-29 07:02 | Emergency (ER) | payer MEDICARE ==
[2024-01-29 07:34] LABS: BASOPHILS ABSOLUTE AUTO 0.11 K/uL (0.00-0.20); BASOPHILS PERCENT AUTO 1.3 % (0.0-1.0); EOSINOPHILS ABSOLUTE AUTO 0.52 K/uL (0.00-0.45); EOSINOPHILS PERCENT AUTO 5.9 % (0.0-6.0); HEMATOCRIT 33.9 % (37.0-47.0); IMMATURE GRAN ABSOLUTE AUTO 0.09 K/uL (0.00-0.05); LYMPHOCYTES ABSOLUTE AUTO 1.85 K/uL (1.00-4.80); LYMPHOCYTES PERCENT AUTO 21.1 % (24.0-44.0); MEAN CORPUSCULAR HEMOGLOBIN 31.5 pg (28.0-32.0); MEAN CORPUSCULAR HGB CONC 35.4 g/dL (32.0-36.0); MEAN PLATELET VOLUME 8.4 fL (9.4-12.3); MONOCYTES ABSOLUTE AUTO 0.55 K/uL (0.00-0.80); MONOCYTES PERCENT AUTO 6.3 % (0.0-8.0); NEUTROPHILS ABSOLUTE AUTO 5.65 K/uL (1.80-7.70); NEUTROPHILS PERCENT AUTO 64.4 % (41.0-71.0); PLATELET COUNT,PLT 149 K/uL (150-400); RED BLOOD CELL COUNT 3.81 M/uL (4.10-5.30); WHITE BLOOD CELL COUNT,WBC 8.77 K/uL (3.9-11.3)
[2024-01-29 08:03] LABS: ALBUMIN 3.9 g/dL (3.4-5.0); BILIRUBIN TOTAL 0.3 mg/dL (0.2-1.0); CALCIUM 9.3 mg/dL (8.5-10.1); CARBON DIOXIDE,CO2 28.6 mmol/L (21.0-32.0); CREATININE 1.1 mg/dL (0.6-1.0); EST CRCL DRUG DOSING (CG) 37.93 mL/min; MAGNESIUM 1.8 mg/dL (1.8-2.4); POTASSIUM,K 4.4 mmol/L (3.5-5.1); PROTEIN TOTAL,TP 7.9 g/dL (6.4-8.2)
[2024-01-29] MEDS: Sodium Chloride 0.9% 10 ML Syringe FLUSH PRN (08:13)
[2024-01-29] MEDS: Ketorolac 30 MG/ML SDV IVPUSH ONE (08:13)
[2024-01-29] MEDS: Sodium Chloride 0.9% 1,000 ML IV ONE (08:13)
[2024-01-29] MEDS: Ondansetron 4 MG/2 ML SDV IVPUSH ONE (08:13)
[2024-01-29] MEDS: fentaNYL 50 MCG/ML SDV IVPUSH ONE (08:13)
[2024-01-29] MEDS: Sodium Chloride 0.9% 2.5 ML Syringe FLUSH PRN (08:14)
[2024-01-29 08:18] LABS: APPEARANCE,URINE CLEAR; BILIRUBIN,URINE NEGATIVE (NEGATIVE); COLOR,URINE YELLOW; GLUCOSE,URINE NEGATIVE (NEGATIVE); KETONES,URINE NEGATIVE (NEGATIVE); LEUKOCYTE ESTERASE,URINE NEGATIVE (NEGATIVE); NITRITE,URINE NEGATIVE (NEGATIVE); OCCULT BLOOD,URINE NEGATIVE (NEGATIVE); PH,URINE 5.5 (5.0-8.0); PROTEIN,URINE NEGATIVE (NEGATIVE); UROBILINOGEN,URINE 0.2 EU/dL (<2.0)
[2024-01-29 08:53] LABS: CORONAVIRUS COVID-19 NAA NEGATIVE (NEGATIVE); INFLUENZA A NAA NEGATIVE (NEGATIVE); INFLUENZA B NAA NEGATIVE (NEGATIVE)
[2024-01-29 11:44] VITALS: BP 167/63; PULSE 56
== END 2024-01-29 11:45 | disposition home or self-care (01) ==
LOC: MW.ED 07:02
DX: R07.9 Chest pain, unspecified (principal); R10.9 Unspecified abdominal pain; R19.7 Diarrhea, unspecified; E86.0 Dehydration; I10 Essential (primary) hypertension; I25.2 Old myocardial infarction; E11.9 Type 2 diabetes mellitus without complications; E03.9 Hypothyroidism, unspecified; Z75.8 Other problems related to medical facilities and other health care; Z79.82 Long term (current) use of aspirin; Z79.84 Long term (current) use of oral hypoglycemic drugs; Z79.899 Other long term (current) drug therapy; Z86.16 Personal history of COVID-19; Z90.49 Acquired absence of other specified parts of digestive tract; Z90.710 Acquired absence of both cervix and uterus
CPT/HCPCS: 0240U; 36415; 74176; 80053; 81003; 83690; 83735; 84484; 85025; 93005; 96361; 96374; 96375; 99285; J1885; J2405; J3010; J3490; J7030; 93010; 99284

== ENCOUNTER 2024-10-22 14:08 | Emergency (ER) | payer MEDICARE ==
[2024-10-22] MEDS ORDERED: Sodium Chloride 0.9% 10 ML Syringe FLUSH PRN (17:08)
[2024-10-22] MEDS ORDERED: Naloxone 0.4 MG/ML SDV IVPUSH PRN (17:08)
[2024-10-22 17:28] LABS: BASOPHILS ABSOLUTE AUTO 0.11 K/uL (0.00-0.20); BASOPHILS PERCENT AUTO 1.1 % (0.0-1.0); EOSINOPHILS ABSOLUTE AUTO 0.86 K/uL (0.00-0.45); EOSINOPHILS PERCENT AUTO 8.4 % (0.0-6.0); HEMATOCRIT 31.4 % (37.0-47.0); HEMOGLOBIN 11.1 g/dL (12.0-16.0); IMMATURE GRAN ABSOLUTE AUTO 0.07 K/uL (0.00-0.05); IMMATURE GRAN PERCENT AUTO 0.7 % (0.0-0.4); LYMPHOCYTES ABSOLUTE AUTO 2.05 K/uL (1.00-4.80); LYMPHOCYTES PERCENT AUTO 20.1 % (24.0-44.0); MEAN CORPUSCULAR HEMOGLOBIN 30.7 pg (28.0-32.0); MEAN CORPUSCULAR HGB CONC 35.4 g/dL (32.0-36.0); MEAN PLATELET VOLUME 8.6 fL (9.4-12.3); MONOCYTES ABSOLUTE AUTO 0.74 K/uL (0.00-0.80); MONOCYTES PERCENT AUTO 7.3 % (0.0-8.0); NEUTROPHILS ABSOLUTE AUTO 6.36 K/uL (1.80-7.70); NEUTROPHILS PERCENT AUTO 62.4 % (41.0-71.0); PLATELET COUNT,PLT 161 K/uL (150-400); RED BLOOD CELL COUNT 3.61 M/uL (4.10-5.30); WHITE BLOOD CELL COUNT,WBC 10.19 K/uL (3.9-11.3)
[2024-10-22] MEDS: HYDROmorphone 0.5 MG/0.5 ML Syringe IVPUSH ONE (17:34)
[2024-10-22 17:35] LABS: BILIRUBIN,URINE NEGATIVE (NEGATIVE); COLOR,URINE YELLOW; GLUCOSE,URINE NEGATIVE (NEGATIVE); KETONES,URINE NEGATIVE (NEGATIVE); LEUKOCYTE ESTERASE,URINE TRACE (NEGATIVE); NITRITE,URINE NEGATIVE (NEGATIVE); OCCULT BLOOD,URINE TRACE-INTACT (NEGATIVE); PROTEIN,URINE NEGATIVE (NEGATIVE); UROBILINOGEN,URINE 0.2 EU/dL (<2.0)
[2024-10-22 17:43] LABS: APPEARANCE,URINE HAZY; BACTERIA,URINE FEW (NEGATIVE); EPITHELIAL CELLS,URINE RARE (NONE-FEW); RBC,URINE 0-1 (0-2/HPF)
[2024-10-22 17:53] LABS: A/G RATIO 0.9 (0.9-1.6); ALBUMIN 3.4 g/dL (3.4-5.0); BILIRUBIN TOTAL 0.4 mg/dL (0.2-1.0); CALCIUM 9.3 mg/dL (8.5-10.1); CARBON DIOXIDE,CO2 28.7 mmol/L (21.0-32.0); CREATININE 1.1 mg/dL (0.6-1.0); EST CRCL DRUG DOSING (CG) 40.99 mL/min; MAGNESIUM 1.9 mg/dL (1.8-2.4); POTASSIUM,K 3.9 mmol/L (3.5-5.1); PROTEIN TOTAL,TP 7.2 g/dL (6.4-8.2)
[2024-10-22] MEDS: Iopamidol 755 MG/ML 500 ML Multipack Bottle IVPUSH STA (18:23)
[2024-10-22] MEDS: Sodium Chloride 0.9% 1,000 ML IV ONE ×2 (19:29)
[2024-10-22] MEDS: Metoclopramide 10 MG/2 ML SDV IVPUSH ONE (19:29)
[2024-10-22] MEDS: Ketorolac 30 MG/ML SDV IVPUSH ONE (19:30)
[2024-10-22 22:04] VITALS: BP 138/72; PULSE 66
== END 2024-10-22 22:03 | disposition home or self-care (01) ==
LOC: MW.ED 14:08
DX: R19.7 Diarrhea, unspecified (principal); E86.0 Dehydration; I25.2 Old myocardial infarction; I10 Essential (primary) hypertension; E78.00 Pure hypercholesterolemia, unspecified; J45.909 Unspecified asthma, uncomplicated; M19.90 Unspecified osteoarthritis, unspecified site; E11.9 Type 2 diabetes mellitus without complications; E03.9 Hypothyroidism, unspecified; Z90.49 Acquired absence of other specified parts of digestive tract; Z90.710 Acquired absence of both cervix and uterus; Z95.2 Presence of prosthetic heart valve; Z79.51 Long term (current) use of inhaled steroids; Z79.82 Long term (current) use of aspirin; Z79.84 Long term (current) use of oral hypoglycemic drugs; Z79.890 Hormone replacement therapy; Z79.899 Other long term (current) drug therapy
CPT/HCPCS: 36415; 74177; 80053; 81001; 83690; 83735; 85025; 96361; 96374; 96375; 99284; J1885; J2765; J7030; Q9967

== ENCOUNTER 2024-10-28 21:26 | Emergency (ER) | payer MEDICARE ==
[2024-10-28 23:23] LABS: BASOPHILS ABSOLUTE AUTO 0.08 K/uL (0.00-0.20); BASOPHILS PERCENT AUTO 0.6 % (0.0-1.0); EOSINOPHILS ABSOLUTE AUTO 0.75 K/uL (0.00-0.45); EOSINOPHILS PERCENT AUTO 5.3 % (0.0-6.0); HEMATOCRIT 30.1 % (37.0-47.0); HEMOGLOBIN 10.5 g/dL (12.0-16.0); IMMATURE GRAN ABSOLUTE AUTO 0.18 K/uL (0.00-0.05); IMMATURE GRAN PERCENT AUTO 1.3 % (0.0-0.4); LYMPHOCYTES ABSOLUTE AUTO 2.52 K/uL (1.00-4.80); LYMPHOCYTES PERCENT AUTO 17.9 % (24.0-44.0); MEAN CORPUSCULAR HEMOGLOBIN 30.4 pg (28.0-32.0); MEAN CORPUSCULAR HGB CONC 34.9 g/dL (32.0-36.0); MEAN CORPUSCULAR VOLUME 87.2 fL (83.0-99.0); MEAN PLATELET VOLUME 8.5 fL (9.4-12.3); MONOCYTES ABSOLUTE AUTO 0.78 K/uL (0.00-0.80); MONOCYTES PERCENT AUTO 5.5 % (0.0-8.0); NEUTROPHILS ABSOLUTE AUTO 9.75 K/uL (1.80-7.70); NEUTROPHILS PERCENT AUTO 69.4 % (41.0-71.0); PLATELET COUNT,PLT 166 K/uL (150-400); RED BLOOD CELL COUNT 3.45 M/uL (4.10-5.30); WHITE BLOOD CELL COUNT,WBC 14.06 K/uL (3.9-11.3)
[2024-10-28 23:43] LABS: A/G RATIO 0.9 (0.9-1.6); ALBUMIN 3.3 g/dL (3.4-5.0); BILIRUBIN TOTAL 0.3 mg/dL (0.2-1.0); CARBON DIOXIDE,CO2 30.2 mmol/L (21.0-32.0); CREATININE 1.2 mg/dL (0.6-1.0); EST CRCL DRUG DOSING (CG) 34.77 mL/min; POTASSIUM,K 4.3 mmol/L (3.5-5.1); PROTEIN TOTAL,TP 7.1 g/dL (6.4-8.2)
[2024-10-29] MEDS: Sodium Chloride 0.9% 500 ML IV SCH (00:31)
[2024-10-29] MEDS: Ketorolac 30 MG/ML SDV IVPUSH ONE (00:32)
[2024-10-29 01:12] LABS: LACTIC ACID 0.9 mmol/L (0.4-2.0)
[2024-10-29] MEDS: Iopamidol 755 MG/ML 500 ML Multipack Bottle IVPUSH ONE (01:15)
[2024-10-29 02:33] LABS: APPEARANCE,URINE SLT CLOUDY; BILIRUBIN,URINE NEGATIVE (NEGATIVE); COLOR,URINE YELLOW; GLUCOSE,URINE NEGATIVE (NEGATIVE); KETONES,URINE NEGATIVE (NEGATIVE); LEUKOCYTE ESTERASE,URINE SMALL (NEGATIVE); NITRITE,URINE NEGATIVE (NEGATIVE); OCCULT BLOOD,URINE TRACE-INTACT (NEGATIVE); PROTEIN,URINE NEGATIVE (NEGATIVE); UROBILINOGEN,URINE 0.2 EU/dL (<2.0)
[2024-10-29 02:42] LABS: BACTERIA,URINE FEW (NEGATIVE); EPITHELIAL CELLS,URINE OCCASIONAL (NONE-FEW); RBC,URINE 0-2 (0-2/HPF)
[2024-10-29] MEDS: Morphine 4 MG/ML Syringe IVPUSH ONE (03:22)
[2024-10-29 03:25] VITALS: BP 128/44; PULSE 63
== END 2024-10-29 03:41 | disposition home or self-care (01) ==
LOC: MW.ED 21:26
DX: K52.9 Noninfective gastroenteritis and colitis, unspecified (principal); I10 Essential (primary) hypertension; I25.2 Old myocardial infarction; E78.00 Pure hypercholesterolemia, unspecified; E11.9 Type 2 diabetes mellitus without complications; E03.9 Hypothyroidism, unspecified; Z79.82 Long term (current) use of aspirin; Z79.84 Long term (current) use of oral hypoglycemic drugs; Z79.890 Hormone replacement therapy; Z79.899 Other long term (current) drug therapy; Z90.49 Acquired absence of other specified parts of digestive tract; Z90.710 Acquired absence of both cervix and uterus
CPT/HCPCS: 36415; 74177; 80053; 81001; 82947; 83605; 83690; 85025; 87086; 87088; 87186; 93005; 96374; 96375; 99284; J1885; J2270; J7040; Q9967; 93010

== ENCOUNTER 2024-12-05 05:49 | Observation (INO) | payer MEDICARE ==
[2024-12-05 06:39] LABS: BASOPHILS ABSOLUTE AUTO 0.05 K/uL (0.00-0.20); BASOPHILS PERCENT AUTO 0.6 % (0.0-1.0); EOSINOPHILS ABSOLUTE AUTO 0.06 K/uL (0.00-0.45); EOSINOPHILS PERCENT AUTO 0.8 % (0.0-6.0); HEMATOCRIT 29.5 % (37.0-47.0); HEMOGLOBIN 10.5 g/dL (12.0-16.0); IMMATURE GRAN ABSOLUTE AUTO 0.07 K/uL (0.00-0.05); IMMATURE GRAN PERCENT AUTO 0.9 % (0.0-0.4); LYMPHOCYTES ABSOLUTE AUTO 0.52 K/uL (1.00-4.80); LYMPHOCYTES PERCENT AUTO 6.7 % (24.0-44.0); MEAN CORPUSCULAR HEMOGLOBIN 31.2 pg (28.0-32.0); MEAN CORPUSCULAR HGB CONC 35.6 g/dL (32.0-36.0); MEAN CORPUSCULAR VOLUME 87.5 fL (83.0-99.0); MEAN PLATELET VOLUME 8.3 fL (9.4-12.3); MONOCYTES ABSOLUTE AUTO 0.79 K/uL (0.00-0.80); MONOCYTES PERCENT AUTO 10.2 % (0.0-8.0); NEUTROPHILS ABSOLUTE AUTO 6.26 K/uL (1.80-7.70); NEUTROPHILS PERCENT AUTO 80.8 % (41.0-71.0); PLATELET COUNT,PLT 144 K/uL (150-400); RED BLOOD CELL COUNT 3.37 M/uL (4.10-5.30); WHITE BLOOD CELL COUNT,WBC 7.75 K/uL (3.9-11.3)
[2024-12-05 07:04] LABS: INR 1.07 (0.86-1.11)
[2024-12-05 07:13] LABS: ALBUMIN 3.3 g/dL (3.4-5.0); BILIRUBIN TOTAL 0.6 mg/dL (0.2-1.0); CALCIUM 8.7 mg/dL (8.5-10.1); CARBON DIOXIDE,CO2 24.3 mmol/L (21.0-32.0); CREATININE 1.2 mg/dL (0.6-1.0); EST CRCL DRUG DOSING (CG) 34.77 mL/min; MAGNESIUM 1.8 mg/dL (1.8-2.4); POTASSIUM,K 3.9 mmol/L (3.5-5.1); PROTEIN TOTAL,TP 6.7 g/dL (6.4-8.2)
[2024-12-05] MEDS: cefTRIAXone 2 GM in Sodium Chloride 0.9% 50 ML IV ONE (07:19)
[2024-12-05 07:21] LABS: CORONAVIRUS COVID-19 NAA NEGATIVE (NEGATIVE); INFLUENZA A NAA POSITIVE (NEGATIVE); INFLUENZA B NAA NEGATIVE (NEGATIVE); RESPIRATORY SYNCYTIAL VIR NAA NEGATIVE (NEGATIVE)
[2024-12-05] MEDS: Potassium Chloride 20 MEQ Tab.ER PO ONE (07:51)
[2024-12-05] MEDS: Furosemide 20 MG/2 ML VIAL IVPUSH ONE (07:52)
[2024-12-05] MEDS: Iopamidol 755 MG/ML 500 ML Multipack Bottle IVPUSH STA (08:23)
[2024-12-05] MEDS: Doxycycline 100 MG in Sodium Chloride 0.9% 100 ML IV ONE (08:29)
[2024-12-05] MEDS ORDERED: Docusate Sodium 100 MG Cap PO PRN (09:29)
[2024-12-05] MEDS ORDERED: Sodium Chloride 0.9% 2.5 ML Syringe FLUSH PRN (09:29)
[2024-12-05] MEDS ORDERED: Melatonin 3 MG Tab PO PRN (09:29)
[2024-12-05] MEDS ORDERED: Sodium Chloride 0.9% 10 ML Syringe FLUSH PRN (09:29)
[2024-12-05] MEDS ORDERED: Polyethylene Glycol 3350 Powder 17 GM Packet PO PRN (09:29)
[2024-12-05] MEDS ORDERED: Ondansetron 4 MG/2 ML SDV IVPUSH PRN (09:29)
[2024-12-05] MEDS ORDERED: Glucagon,Human Recombinant 1 MG Vial IM PRN (09:44)
[2024-12-05] MEDS ORDERED: 50% Dextrose in Water 50 ML Syringe IVPUSH PRN (09:44)
[2024-12-05] MEDS: Oseltamivir 75 MG Cap PO ONE (10:37)
[2024-12-05] MEDS: rOPINIRole 1 MG Tab PO SCH ×3 (10:37→21:46)
[2024-12-05] MEDS: Insulin Aspart 100 Units/ML 3 ML Pen SUBCUT SCH (11:51)
[2024-12-05] MEDS: Albuterol 8 GM Inhaler INH SCH (12:43)
[2024-12-05] MEDS: Benzonatate 100 MG Cap PO PRN (17:42)
[2024-12-05] MEDS: Benzocaine/Cetylpyridinium/Menthol Lozenge MUCMEM PRN (17:42)
[2024-12-05] MEDS: Oseltamivir 30 MG Cap PO SCH (21:44)
[2024-12-05] MEDS: Doxycycline 100 MG Cap PO SCH (21:45)
[2024-12-05] MEDS: Acetaminophen 325 MG Tab PO PRN (21:45)
[2024-12-05] MEDS: Formoterol/Mometasone 200-5 MCG 8.8 GM Inhaler INH SCH (21:46)
[2024-12-05] MEDS: Albuterol/Ipratropium 3.0-0.5 MG/3 ML Neb Soln NEB PRN (22:32)
[2024-12-06 06:40] LABS: BASOPHILS ABSOLUTE AUTO 0.04 K/uL (0.00-0.20); BASOPHILS PERCENT AUTO 0.8 % (0.0-1.0); EOSINOPHILS ABSOLUTE AUTO 0.04 K/uL (0.00-0.45); EOSINOPHILS PERCENT AUTO 0.8 % (0.0-6.0); HEMATOCRIT 30.1 % (37.0-47.0); HEMOGLOBIN 10.4 g/dL (12.0-16.0); IMMATURE GRAN ABSOLUTE AUTO 0.07 K/uL (0.00-0.05); IMMATURE GRAN PERCENT AUTO 1.4 % (0.0-0.4); LYMPHOCYTES ABSOLUTE AUTO 0.62 K/uL (1.00-4.80); LYMPHOCYTES PERCENT AUTO 12.4 % (24.0-44.0); MEAN CORPUSCULAR HEMOGLOBIN 30.8 pg (28.0-32.0); MEAN CORPUSCULAR HGB CONC 34.6 g/dL (32.0-36.0); MEAN CORPUSCULAR VOLUME 89.1 fL (83.0-99.0); MEAN PLATELET VOLUME 8.8 fL (9.4-12.3); MONOCYTES ABSOLUTE AUTO 0.79 K/uL (0.00-0.80); MONOCYTES PERCENT AUTO 15.8 % (0.0-8.0); NEUTROPHILS ABSOLUTE AUTO 3.45 K/uL (1.80-7.70); NEUTROPHILS PERCENT AUTO 68.8 % (41.0-71.0); PLATELET COUNT,PLT 132 K/uL (150-400); RED BLOOD CELL COUNT 3.38 M/uL (4.10-5.30); WHITE BLOOD CELL COUNT,WBC 5.01 K/uL (3.9-11.3)
[2024-12-06] MEDS: Levothyroxine 100 MCG Tab PO SCH (07:02)
[2024-12-06] MEDS: Levothyroxine 75 MCG Tab PO SCH (07:02)
[2024-12-06] MEDS: Pantoprazole 40 MG Tab.CR PO SCH (07:02)
[2024-12-06] MEDS: cefTRIAXone 1 GM in Sodium Chloride 0.9% 50 ML IV SCH (07:02)
[2024-12-06 07:05] LABS: CARBON DIOXIDE,CO2 24.2 mmol/L (21.0-32.0); CREATININE 1.2 mg/dL (0.6-1.0); EST CRCL DRUG DOSING (CG) 34.77 mL/min; MAGNESIUM 2.1 mg/dL (1.8-2.4); POTASSIUM,K 4.1 mmol/L (3.5-5.1)
[2024-12-06] MEDS: Clopidogrel 75 MG Tab PO SCH (10:27)
[2024-12-06] MEDS: atorvaSTATin 20 MG Tab PO SCH (10:27)
[2024-12-06] MEDS: Sertraline 100 MG Tab PO SCH (10:28)
[2024-12-06 11:20] VITALS: BP 134/61; PULSE 69
== END 2024-12-06 12:30 | disposition home health service (06) ==
LOC: MW.ED 05:49 → MW.MS 07:37
PROVIDERS: ADMIT Internal Medicine; ATTEND Internal Medicine
DX: J10.1 Influenza due to other identified influenza virus with other respiratory manifestations (principal); J18.9 Pneumonia, unspecified organism; R53.1 Weakness; E78.5 Hyperlipidemia, unspecified; J45.20 Mild intermittent asthma, uncomplicated; F32.A Depression, unspecified; E11.9 Type 2 diabetes mellitus without complications; I10 Essential (primary) hypertension; Z95.2 Presence of prosthetic heart valve; Z79.899 Other long term (current) drug therapy; Z79.890 Hormone replacement therapy; Z79.82 Long term (current) use of aspirin; Z20.822 Contact with and (suspected) exposure to COVID-19
CPT/HCPCS: 0241U; 36415; 71045; 71275; 80048; 80053; 82947; 83605; 83735; 83880; 84484; 85025; 85610; 87040; 93005; 96365; 96366; 96367; 96375; 99285; A9270; G0378; J0696; J1940; J3490; Q9967; 93010; 99222; 99238; 99284; J7620-GY

== ENCOUNTER 2024-12-30 09:25 | Emergency (ER) | payer MEDICARE ==
[2024-12-30 10:51] LABS: BASOPHILS PERCENT AUTO 0.9 % (0.0-1.0); EOSINOPHILS ABSOLUTE AUTO 0.33 K/uL (0.00-0.45); HEMATOCRIT 29.8 % (37.0-47.0); HEMOGLOBIN 10.6 g/dL (12.0-16.0); IMMATURE GRAN ABSOLUTE AUTO 0.06 K/uL (0.00-0.05); IMMATURE GRAN PERCENT AUTO 0.6 % (0.0-0.4); LYMPHOCYTES ABSOLUTE AUTO 1.85 K/uL (1.00-4.80); MEAN CORPUSCULAR HGB CONC 35.6 g/dL (32.0-36.0); MEAN CORPUSCULAR VOLUME 87.1 fL (83.0-99.0); MEAN PLATELET VOLUME 8.6 fL (9.4-12.3); MONOCYTES ABSOLUTE AUTO 0.88 K/uL (0.00-0.80); MONOCYTES PERCENT AUTO 8.1 % (0.0-8.0); NEUTROPHILS ABSOLUTE AUTO 7.68 K/uL (1.80-7.70); NEUTROPHILS PERCENT AUTO 70.4 % (41.0-71.0); PLATELET COUNT,PLT 170 K/uL (150-400); RED BLOOD CELL COUNT 3.42 M/uL (4.10-5.30)
[2024-12-30] MEDS: Morphine 4 MG/ML Syringe IVPUSH ONE (10:57)
[2024-12-30] MEDS: Ondansetron 4 MG/2 ML SDV IVPUSH ONE (10:57)
[2024-12-30 11:22] LABS: A/G RATIO 0.9 (0.9-1.6); ALBUMIN 3.6 g/dL (3.4-5.0); BILIRUBIN TOTAL 0.5 mg/dL (0.2-1.0); C-REACTIVE PROTEIN 2.18 mg/dL (<0.3); CALCIUM 9.3 mg/dL (8.5-10.1); CARBON DIOXIDE,CO2 25.7 mmol/L (21.0-32.0); CREATININE 1.2 mg/dL (0.6-1.0); EST CRCL DRUG DOSING (CG) 34.77 mL/min; POTASSIUM,K 3.9 mmol/L (3.5-5.1); PROTEIN TOTAL,TP 7.4 g/dL (6.4-8.2)
[2024-12-30 13:06] VITALS: BP 134/86; PULSE 87
== END 2024-12-30 13:05 | disposition home or self-care (01) ==
LOC: MW.ED 09:25
DX: M25.561 Pain in right knee (principal); I10 Essential (primary) hypertension; J45.909 Unspecified asthma, uncomplicated; E78.00 Pure hypercholesterolemia, unspecified; I25.2 Old myocardial infarction; E11.9 Type 2 diabetes mellitus without complications; E03.9 Hypothyroidism, unspecified; Z90.49 Acquired absence of other specified parts of digestive tract; Z90.710 Acquired absence of both cervix and uterus; Z79.899 Other long term (current) drug therapy; Z79.890 Hormone replacement therapy; Z79.51 Long term (current) use of inhaled steroids; Z79.82 Long term (current) use of aspirin; Z75.8 Other problems related to medical facilities and other health care
CPT/HCPCS: 36415; 73562; 80053; 85025; 85652; 86140; 93971; 96374; 96375; 99284; J2270; J2405; 99283

== ENCOUNTER 2025-03-19 06:36 | Emergency (ER) | payer MEDICARE ==
[2025-03-19] MEDS ORDERED: Sodium Chloride 0.9% 2.5 ML Syringe FLUSH PRN (06:59)
[2025-03-19] MEDS ORDERED: Sodium Chloride 0.9% 20 ML SDV IV PRN (06:59)
[2025-03-19] MEDS ORDERED: Sodium Chloride 0.9% 10 ML Syringe FLUSH PRN (06:59)
[2025-03-19 07:28] LABS: BASOPHILS ABSOLUTE AUTO 0.08 K/uL (0.00-0.20); EOSINOPHILS ABSOLUTE AUTO 0.42 K/uL (0.00-0.45); HEMATOCRIT 30.8 % (37.0-47.0); HEMOGLOBIN 10.6 g/dL (12.0-16.0); IMMATURE GRAN ABSOLUTE AUTO 0.06 K/uL (0.00-0.05); IMMATURE GRAN PERCENT AUTO 0.7 % (0.0-0.4); LYMPHOCYTES ABSOLUTE AUTO 1.44 K/uL (1.00-4.80); LYMPHOCYTES PERCENT AUTO 17.2 % (24.0-44.0); MEAN CORPUSCULAR HEMOGLOBIN 30.4 pg (28.0-32.0); MEAN CORPUSCULAR HGB CONC 34.4 g/dL (32.0-36.0); MEAN CORPUSCULAR VOLUME 88.3 fL (83.0-99.0); MEAN PLATELET VOLUME 8.4 fL (9.4-12.3); MONOCYTES ABSOLUTE AUTO 0.72 K/uL (0.00-0.80); MONOCYTES PERCENT AUTO 8.6 % (0.0-8.0); NEUTROPHILS ABSOLUTE AUTO 5.66 K/uL (1.80-7.70); NEUTROPHILS PERCENT AUTO 67.5 % (41.0-71.0); PLATELET COUNT,PLT 163 K/uL (150-400); RED BLOOD CELL COUNT 3.49 M/uL (4.10-5.30); WHITE BLOOD CELL COUNT,WBC 8.38 K/uL (3.9-11.3)
[2025-03-19 07:50] LABS: INR 1.01 (0.86-1.11); PTT,PARTIAL THROMBOPLSTIN TIME 25.1 SEC (23.9-30.7)
[2025-03-19 07:55] LABS: A/G RATIO 0.9 (0.9-1.6); ALBUMIN 3.4 g/dL (3.4-5.0); BILIRUBIN TOTAL 0.3 mg/dL (0.2-1.0); CALCIUM 8.6 mg/dL (8.5-10.1); CARBON DIOXIDE,CO2 27.2 mmol/L (21.0-32.0); CREATININE 1.1 mg/dL (0.6-1.0); EST CRCL DRUG DOSING (CG) 37.32 mL/min; POTASSIUM,K 4.2 mmol/L (3.5-5.1)
[2025-03-19] MEDS: Albuterol/Ipratropium 3.0-0.5 MG/3 ML Neb Soln NEB ONE (08:55)
[2025-03-19 09:03] VITALS: BP 138/83; PULSE 55
[2025-03-19] MEDS: Furosemide 40 MG/4 ML VIAL IVPUSH ONE (10:15)
[2025-03-19] MEDS: predniSONE 20 MG Tab PO ONE (10:15)
== END 2025-03-19 12:23 | disposition home or self-care (01) ==
LOC: MW.ED 06:36
DX: I11.0 Hypertensive heart disease with heart failure (principal); I50.9 Heart failure, unspecified; E78.00 Pure hypercholesterolemia, unspecified; E11.9 Type 2 diabetes mellitus without complications; E03.9 Hypothyroidism, unspecified; Z79.51 Long term (current) use of inhaled steroids; J45.909 Unspecified asthma, uncomplicated; Z79.82 Long term (current) use of aspirin; Z79.899 Other long term (current) drug therapy; Z79.890 Hormone replacement therapy; Z90.49 Acquired absence of other specified parts of digestive tract
CPT/HCPCS: 36415; 71046; 80053; 83735; 83880; 84484; 85025; 85610; 85730; 93005; 96374; 99285; A9270; J1938; 93010; 99284

== ENCOUNTER 2025-05-13 06:41 | Emergency (ER) | payer MEDICARE ==
[2025-05-13 07:24] VITALS: BP 142/53; PULSE 67
== END 2025-05-13 07:35 | disposition home or self-care (01) ==
LOC: MW.ED 06:41
DX: S09.90XA Unspecified injury of head, initial encounter (principal); M54.2 Cervicalgia; Z79.01 Long term (current) use of anticoagulants; Z79.82 Long term (current) use of aspirin; I10 Essential (primary) hypertension; M19.90 Unspecified osteoarthritis, unspecified site; E78.00 Pure hypercholesterolemia, unspecified; E11.9 Type 2 diabetes mellitus without complications; E03.9 Hypothyroidism, unspecified; Z79.890 Hormone replacement therapy; Z79.899 Other long term (current) drug therapy; Z90.49 Acquired absence of other specified parts of digestive tract; Z90.710 Acquired absence of both cervix and uterus; W01.0XXA Fall on same level from slipping, tripping and stumbling without subsequent striking against object, initial encounter
CPT/HCPCS: 70450; 72125; 99284; A9270; 99282

== ENCOUNTER 2025-06-07 10:23 | Emergency (ER) | payer MEDICARE ==
[2025-06-07 10:47] LABS: BASOPHILS ABSOLUTE AUTO 0.08 K/uL (0.00-0.20); BASOPHILS PERCENT AUTO 0.8 % (0.0-1.0); EOSINOPHILS ABSOLUTE AUTO 0.39 K/uL (0.00-0.45); EOSINOPHILS PERCENT AUTO 3.7 % (0.0-6.0); IMMATURE GRAN ABSOLUTE AUTO 0.10 K/uL (0.00-0.05); IMMATURE GRAN PERCENT AUTO 1.0 % (0.0-0.4); LYMPHOCYTES ABSOLUTE AUTO 1.67 K/uL (1.00-4.80); LYMPHOCYTES PERCENT AUTO 16.0 % (24.0-44.0); MEAN PLATELET VOLUME 8.6 fL (9.4-12.3); MONOCYTES ABSOLUTE AUTO 0.65 K/uL (0.00-0.80); MONOCYTES PERCENT AUTO 6.2 % (0.0-8.0); NEUTROPHILS ABSOLUTE AUTO 7.54 K/uL (1.80-7.70); NEUTROPHILS PERCENT AUTO 72.3 % (41.0-71.0); NRBC ABSOLUTE 0.00 K/uL (0.00-0.02); NRBC PERCENT 0.0 /100WBC (0.0-0.2); PLATELET COUNT,PLT 192 K/uL (150-400); RED BLOOD CELL COUNT 3.75 M/uL (4.10-5.30); WHITE BLOOD CELL COUNT,WBC 10.43 K/uL (3.9-11.3)
[2025-06-07] MEDS: Furosemide 40 MG/4 ML VIAL IVPUSH ONE (10:50)
[2025-06-07 11:02] LABS: INR 1.0 (0.86-1.11)
[2025-06-07 11:25] LABS: A/G RATIO 0.9 (0.9-1.6); ALANINE AMINOTRANSFERASE,ALT 13.0 IU/L (14-63); ASPARTATE AMNIOTRANSFERASE,AST 14.0 IU/L (15-37); BILIRUBIN TOTAL 0.4 mg/dL (0.2-1.0); BLOOD UREA NITROGEN,BUN 29.0 mg/dL (7.0-18.0); CARBON DIOXIDE,CO2 24.6 mmol/L (21.0-32.0); CHLORIDE,CL 105.0 mmol/L (98-107); CREATININE 1.2 mg/dL (0.6-1.0); EST CRCL DRUG DOSING (CG) 34.21 mL/min; GLUCOSE RANDOM 139.0 mg/dL (74-106); POTASSIUM,K 4.5 mmol/L (3.5-5.1); PRO B-TYPE NATRIUR PEPT,BNPPRO 1529.0 pg/mL (0-450); PROTEIN TOTAL,TP 7.4 g/dL (6.4-8.2); SODIUM,NA 138.0 mmol/L (136-145)
[2025-06-07 11:34] LABS: ESTIMATED GFR 46.0 mL/min (>60)
[2025-06-07] MEDS: Iopamidol 755 MG/ML 500 ML Multipack Bottle IVPUSH STA (11:59)
[2025-06-07 14:22] VITALS: BP 130/60; PULSE 69
== END 2025-06-07 14:20 | disposition home or self-care (01) ==
LOC: MW.ED 10:23
DX: S22.32XA Fracture of one rib, left side, initial encounter for closed fracture (principal); S39.91XA Unspecified injury of abdomen, initial encounter; M19.042 Primary osteoarthritis, left hand; M19.041 Primary osteoarthritis, right hand; I49.3 Ventricular premature depolarization; M25.532 Pain in left wrist; R60.0 Localized edema; I10 Essential (primary) hypertension; I25.2 Old myocardial infarction; E78.00 Pure hypercholesterolemia, unspecified; J45.909 Unspecified asthma, uncomplicated; E11.9 Type 2 diabetes mellitus without complications; E03.9 Hypothyroidism, unspecified; M19.90 Unspecified osteoarthritis, unspecified site; Z90.49 Acquired absence of other specified parts of digestive tract; Z90.710 Acquired absence of both cervix and uterus; Z79.51 Long term (current) use of inhaled steroids; Z79.01 Long term (current) use of anticoagulants; Z79.82 Long term (current) use of aspirin; Z79.890 Hormone replacement therapy; Z79.899 Other long term (current) drug therapy; W19.XXXA Unspecified fall, initial encounter
CPT/HCPCS: 36415; 71045; 71260; 73130; 74177; 80053; 83735; 83880; 84484; 85025; 85610; 93005; 96374; 99285; A9270; J1938; Q9967; 93010; 99284